=== PATIENT | female | born 1950 | race Two or more races ===

== ENCOUNTER 2021-11-27 11:53 | Inpatient (IN) | payer OTHER ==
[~2021-11-27] VITALS: Ht 157.5 cm; Wt 146.3 kg
[2021-11-27 13:06] LABS: Basophils # (auto) 0 10 ^3/uL (0-0.2); Basophils % (auto) 0.4 % (0.0-2.0); Eosinophils # (auto) 0 10 ^3/uL (0-0.8); Eosinophils % (auto) 0.4 % (0.0-7.0); Hematocrit 42.4 % (36.0-46.0); Hemoglobin 14.1 g/dL (12.2-16.2); Lymphocytes # (auto) 2.3 10 ^3/uL (0.4-5.4); Lymphocytes % (auto) 26.3 % (10.0-50.0); Mean Corpuscular Hemoglobin 27.6 pg (28.0-32.0); Mean Corpuscular Hgb Conc. 33.3 g/dL (32.0-36.0); Monocytes # (auto) 0.4 10 ^3/uL (0-1.3); Monocytes % (auto) 4.1 % (0.0-12.0); Neutrophils % (auto) 68.8 % (37.0-80.0); Nucleated Red Blood Cells % 0.1 %; Red Blood Cells 5.11 10^6/uL (4.0-5.20); White Blood Cell 8.7 10^3/uL (4.4-10.8)
[2021-11-27 13:31] LABS: Albumin 3.2 g/dL (3.4-5.0); Calcium 9.3 mg/dL (8.5-10.1); Magnesium 2.4 mg/dL (1.6-2.6); Potassium 4.1 mmol/L (3.5-5.1)
[2021-11-27 13:35] LABS: BUN/Creatinine Ratio 26.2; Bilirubin, Total 0.4 mg/dL (0.2-1.0); Total Protein 7.6 g/dL (6.4-8.2)
[2021-11-27 13:58] LABS: Urine Bacteria MOD /hpf (None Seen); Urine Blood Negative /uL (Negative); Urine Mucus FEW (None Seen); Urine Specific Gravity 1.011 (1.001-1.035); Urine WBC 3 /hpf (0 - 5)
[2021-11-27] MEDS ORDERED: ASPirin 325 MG TAB PO ONE (16:15)
[2021-11-27] MEDS ORDERED: cefTRIAXone 1GM/50ML D5W 50 ML IV ONE (18:45)
[2021-11-27] MEDS ORDERED: DEXTROSE (50%) 50ML SYRG IV PRN (18:45)
[2021-11-27] MEDS ORDERED: ONDANSETRON HCL 4 MG/2 ML VIAL IV PRN (18:45)
[2021-11-27] MEDS ORDERED: NITROGLYCERIN 0.4 MG SL TAB SL PRN (18:45)
[2021-11-27] MEDS ORDERED: MORPHINE SULFATE INJ 2 MG/ml SYRG IV PRN (18:45)
[2021-11-27 20:04] LABS: Cholesterol 120 mg/dL (< 200)
[2021-11-27 20:07] LABS: HDL Cholesterol 55 mg/dL (40-59); LDL Cholesterol 59 mg/dL (< 100); Triglycerides 110 mg/dL (< 150)
[2021-11-27 22:00] VITALS: BP 125/62
[2021-11-27 22:31] VITALS: BP 115/46
[2021-11-27] MEDS: ACCU-CHEK COMFORT CURVE STRIP VI SCH (23:32)
[2021-11-27] MEDS: InsuLIN REG 1unit/0.01ml Soln (100units/ml) SC SCH (23:34)
[2021-11-28] MEDS ORDERED: ENOXAPARIN SOD 100 MG/1 ML SYRINGE SC ONE (01:15)
[2021-11-28 05:00] VITALS: BP 96/43
[2021-11-28 07:07] LABS: Basophils # (auto) 0.1 10 ^3/uL (0-0.2); Basophils % (auto) 0.8 % (0.0-2.0); Eosinophils # (auto) 0 10 ^3/uL (0-0.8); Eosinophils % (auto) 0.5 % (0.0-7.0); Hematocrit 39.5 % (36.0-46.0); Hemoglobin 13.3 g/dL (12.2-16.2); Lymphocytes # (auto) 2.2 10 ^3/uL (0.4-5.4); Lymphocytes % (auto) 28.8 % (10.0-50.0); Mean Corpuscular Hgb Conc. 33.8 g/dL (32.0-36.0); Mean Corpuscular Volume 82.9 fL (80.0-100.0); Monocytes # (auto) 0.4 10 ^3/uL (0-1.3); Monocytes % (auto) 5.1 % (0.0-12.0); Neutrophils % (auto) 64.8 % (37.0-80.0); Red Blood Cells 4.76 10^6/uL (4.0-5.20); Red Cell Distribution Width 15.9 % (11.8-14.3); White Blood Cell 7.8 10^3/uL (4.4-10.8)
[2021-11-28 07:29] LABS: Potassium 3.8 mmol/L (3.5-5.1)
[2021-11-28 07:37] LABS: Albumin 2.9 g/dL (3.4-5.0); BUN/Creatinine Ratio 23.3; Bilirubin, Total 0.7 mg/dL (0.2-1.0)
[2021-11-28] MEDS: cefTRIAXone 1GM/50ML D5W 50 ML IV SCH (08:47)
[2021-11-28 09:00] VITALS: BP 111/53
[2021-11-28] MEDS: ENOXAPARIN SOD 40 MG/0.4 ML SYRINGE SC SCH (09:40)
[2021-11-28] MEDS: ACCU-CHEK COMFORT CURVE STRIP VI SCH ×3 (12:04→22:08)
[2021-11-28] MEDS: InsuLIN REG 1unit/0.01ml Soln (100units/ml) SC SCH ×3 (12:05→22:08)
[2021-11-28 13:00] VITALS: BP 109/58
[2021-11-28 17:00] VITALS: BP 114/59
[2021-11-28 22:00] VITALS: BP 117/45
[2021-11-29 05:00] VITALS: BP_SYST 111; BP_SYST 123; BP_DIAS 44; BP_DIAS 62
[2021-11-29] MEDS: ACCU-CHEK COMFORT CURVE STRIP VI SCH ×4 (06:59→21:44)
[2021-11-29] MEDS: InsuLIN REG 1unit/0.01ml Soln (100units/ml) SC SCH ×4 (07:00→21:51)
[2021-11-29 08:00] VITALS: BP 133/69
[2021-11-29 09:03] VITALS: BP 116/66
[2021-11-29] MEDS: ENOXAPARIN SOD 40 MG/0.4 ML SYRINGE SC SCH (10:21)
[2021-11-29] MEDS: cefTRIAXone 1GM/50ML D5W 50 ML IV SCH (10:21)
[2021-11-29] MEDS ORDERED: CIPR250T3 PO (11:54)
[2021-11-29 17:00] VITALS: BP 123/62
[2021-11-29 20:00] VITALS: BP 111/55
[2021-11-29 22:00] VITALS: BP 111/55
[2021-11-30 04:30] VITALS: BP 117/51
[2021-11-30] MEDS: ACCU-CHEK COMFORT CURVE STRIP VI SCH ×4 (06:26→22:58)
[2021-11-30] MEDS: InsuLIN REG 1unit/0.01ml Soln (100units/ml) SC SCH ×4 (06:29→23:03)
[2021-11-30 08:00] VITALS: BP 103/53
[2021-11-30] MEDS: ENOXAPARIN SOD 40 MG/0.4 ML SYRINGE SC SCH (10:03)
[2021-11-30] MEDS: cefTRIAXone 1GM/50ML D5W 50 ML IV SCH (10:03)
[2021-11-30 12:00] VITALS: BP 128/69
[2021-11-30] MEDS: ACETAMINOPHEN 325 MG TAB PO PRN (15:24)
[2021-11-30 16:00] VITALS: BP 124/85
[2021-11-30 20:00] VITALS: BP 123/58
[2021-11-30 22:00] VITALS: BP 123/58
[2021-12-01 05:00] VITALS: BP 112/67
[2021-12-01] MEDS: ACCU-CHEK COMFORT CURVE STRIP VI SCH ×4 (06:58→22:24)
[2021-12-01] MEDS: InsuLIN REG 1unit/0.01ml Soln (100units/ml) SC SCH ×4 (06:59→22:16)
[2021-12-01 08:00] VITALS: BP 128/53
[2021-12-01 09:00] VITALS: BP 128/53
[2021-12-01] MEDS: cefTRIAXone 1GM/50ML D5W 50 ML IV SCH (10:07)
[2021-12-01] MEDS: ACETAMINOPHEN 325 MG TAB PO PRN (10:08)
[2021-12-01] MEDS: ENOXAPARIN SOD 40 MG/0.4 ML SYRINGE SC SCH (10:08)
[2021-12-01 13:00] VITALS: BP 140/64
[2021-12-01 17:30] VITALS: BP 136/55
[2021-12-01 22:00] VITALS: BP 136/64
[2021-12-02 05:00] VITALS: BP 131/45
[2021-12-02] MEDS: ACCU-CHEK COMFORT CURVE STRIP VI SCH ×4 (06:13→22:14)
[2021-12-02] MEDS: InsuLIN REG 1unit/0.01ml Soln (100units/ml) SC SCH ×4 (06:16→22:09)
[2021-12-02] MEDS: cefTRIAXone 1GM/50ML D5W 50 ML IV SCH (08:58)
[2021-12-02] MEDS: ENOXAPARIN SOD 40 MG/0.4 ML SYRINGE SC SCH (08:59)
[2021-12-02 10:00] VITALS: BP 134/61
[2021-12-02 13:00] VITALS: BP 115/73
[2021-12-02 17:00] VITALS: BP 140/64
[2021-12-02 22:00] VITALS: BP 150/64
[2021-12-03 05:00] VITALS: BP 120/53
[2021-12-03] MEDS: ACETAMINOPHEN 325 MG TAB PO PRN (05:04)
[2021-12-03] MEDS: InsuLIN REG 1unit/0.01ml Soln (100units/ml) SC SCH ×4 (06:16→21:43)
[2021-12-03] MEDS: ACCU-CHEK COMFORT CURVE STRIP VI SCH ×4 (06:20→21:42)
[2021-12-03 08:00] VITALS: BP 113/70
[2021-12-03] MEDS: ENOXAPARIN SOD 40 MG/0.4 ML SYRINGE SC SCH (10:22)
[2021-12-03] MEDS: cefTRIAXone 1GM/50ML D5W 50 ML IV SCH (10:22)
[2021-12-03 12:00] VITALS: BP 140/66
[2021-12-03 16:31] VITALS: BP 133/66
[2021-12-03 22:00] VITALS: BP 120/60
[2021-12-04 04:40] LABS: Basophils # (auto) 0 10 ^3/uL (0-0.2); Basophils % (auto) 0.5 % (0.0-2.0); Eosinophils # (auto) 0.3 10 ^3/uL (0-0.8); Eosinophils % (auto) 6.1 % (0.0-7.0); Hematocrit 38.8 % (36.0-46.0); Hemoglobin 13.1 g/dL (12.2-16.2); Lymphocytes # (auto) 1.9 10 ^3/uL (0.4-5.4); Lymphocytes % (auto) 38.7 % (10.0-50.0); Mean Corpuscular Hemoglobin 28.1 pg (28.0-32.0); Mean Corpuscular Hgb Conc. 33.7 g/dL (32.0-36.0); Mean Corpuscular Volume 83.6 fL (80.0-100.0); Monocytes # (auto) 0.3 10 ^3/uL (0-1.3); Monocytes % (auto) 6.2 % (0.0-12.0); Neutrophils # (auto) 2.3 10 ^3/uL (1.6-8.6); Neutrophils % (auto) 48.5 % (37.0-80.0); Nucleated Red Blood Cells % 0.1 %; Red Blood Cells 4.65 10^6/uL (4.0-5.20); Red Cell Distribution Width 16.1 % (11.8-14.3); White Blood Cell 4.8 10^3/uL (4.4-10.8)
[2021-12-04 05:00] VITALS: BP 128/68
[2021-12-04 05:06] LABS: Calcium 9.2 mg/dL (8.5-10.1)
[2021-12-04 05:08] LABS: BUN/Creatinine Ratio 25.7
[2021-12-04] MEDS: InsuLIN REG 1unit/0.01ml Soln (100units/ml) SC SCH ×2 (06:09→12:06)
[2021-12-04] MEDS: ACCU-CHEK COMFORT CURVE STRIP VI SCH ×2 (06:10→11:30)
[2021-12-04 09:35] VITALS: BP 136/71
[2021-12-04] MEDS: cefTRIAXone 1GM/50ML D5W 50 ML IV SCH (09:43)
[2021-12-04] MEDS: ENOXAPARIN SOD 40 MG/0.4 ML SYRINGE SC SCH (09:43)
[2021-12-04] MEDS: ACETAMINOPHEN 325 MG TAB PO PRN (09:43)
[2021-12-04 13:01] VITALS: BP 127/76
[2021-12-04] MEDS ORDERED: DEXTROSE (50%) 50ML SYRG IV PRN (14:00)
[2021-12-04] MEDS ORDERED: InsuLIN REG 1unit/0.01ml Soln (100units/ml) SC SCH ×2 (17:00→22:00)
[2021-12-04] MEDS ORDERED: ACCU-CHEK COMFORT CURVE STRIP VI SCH (17:00)
[2021-12-04 17:26] VITALS: BP 136/55
[2021-12-04 17:48] VITALS: BP 136/55
== END 2021-12-04 19:12 | disposition home or self-care (01) | DRG 281 ==
LOC: ER 11:53 → EDBD 11:53 → TELE 18:43 → TELE-CENTR 22:12
PROVIDERS: ADMIT Registered Nurse; ATTEND Internal Medicine Geriatric Medicine
DX: I21.4 Non-ST elevation (NSTEMI) myocardial infarction (principal); N39.0 Urinary tract infection, site not specified; E66.01 Morbid (severe) obesity due to excess calories; E03.9 Hypothyroidism, unspecified; E11.22 Type 2 diabetes mellitus with diabetic chronic kidney disease; I12.9 Hypertensive chronic kidney disease with stage 1 through stage 4 chronic kidney disease, or unspecified chronic kidney disease; N18.2 Chronic kidney disease, stage 2 (mild); S80.01XA Contusion of right knee, initial encounter; S80.02XA Contusion of left knee, initial encounter; W06.XXXA Fall from bed, initial encounter; Z20.822 Contact with and (suspected) exposure to COVID-19; Z68.39 Body mass index [BMI] 39.0-39.9, adult; Z90.49 Acquired absence of other specified parts of digestive tract; Y93.89 Activity, other specified; Y92.89 Other specified places as the place of occurrence of the external cause; Y99.8 Other external cause status; Z68.37 Body mass index [BMI] 37.0-37.9, adult
CPT/HCPCS: 36415; 72131; 73030; 73562; 74176; 80048; 80053; 80061; 81001; 82962; 83036; 83735; 83880; 84443; 84484; 85025; 85379; 87086; 93005; 93306; 96365; 97110; 97116; 97163; 97530; G0378; J0696; J1815; J2405